=== PATIENT | female | born 1980 | race Asian ===

== ENCOUNTER 2016-10-28 09:58 | Inpatient (IN) | payer OTHER ==
--- NOTE | 2016-10-21 15:02 | HISTORY & PHYSICAL EXAMINATION ---
DATE: 10/28/2016 CHIEF COMPLAINT: Previous . HISTORY OF PRESENT ILLNESS: The patient is a 36-year-old 2, para 1, general health is good. No known drug allergies. Had her first visit during her course at over 20 weeks. Her first delivery was 2006, boy, 8 pounds, after spontaneous labor at 40 weeks for cephalopelvic disproportion. She has had her first ultrasound done during this on 07/01/2016 at which time she was 21 weeks 6 days, presently being scheduled for repeat low segment section. PAST MEDICAL HISTORY: She has 1 boy age 10 in good health. ALLERGIES: No known drug allergies. PAST SURGICAL HISTORY: . MEDICAL HISTORY: No history of rheumatic fever, heart disease, heart murmur, diabetes, tuberculosis. SOCIAL HISTORY: No smoking. 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 FAMILY HISTORY: Mother is 65 in good health. Father 74, in good health. Two brothers and 3 sisters, all in good health. REVIEW OF SYSTEMS: HEAD: No symptoms of frequent or severe headaches. EYES: No symptoms of blurred vision, double vision. EARS: No symptoms of frequent ear infections, difficulty hearing. NOSE: No symptoms of frequent nosebleeds, difficulty breathing through her nose. THROAT: No symptoms of frequent or severe sore throat, difficulty swallowing. RESPIRATORY SYSTEM: No history of asthma, chest pain, shortness of breath. PHYSICAL EXAMINATION: GENERAL: Well-developed, well-nourished 36-year-old [place] female, alert, oriented x3 and cooperative in no acute distress, appears stated age. EYES: Conjunctivae are pink, sclerae white, no evidence of jaundice. EARS: Had normal light reflex bilaterally. NOSE: Had normal mucosa. Septum is midline. There were no polyps. THROAT: No erythema or evidence of infection. Teeth are in good state of repair. HEAD: Was normocephalic. Normal distribution of hair. NECK: Supple. Trachea midline. Thyroid is not enlarged. There is no adenopathy appreciated. Both carotids are of good intensity. CHEST: Clear to auscultation and percussion. No wheezes, rales or rhonchi appreciated. HEART: Had regular rhythm. S1 and S2 are normal. BREAST EXAMINATION: Normal. ABDOMEN: Nontender. movement was palpable. Fundal height was 38 cm. There is a well-healed Pfannenstiel scar. PELVIC EXAMINATION: Vertex presentation. Cervix posterior and closed. MUSCULOSKELETAL EXAMINATION: Revealed no calf tenderness. IMPRESSIONS OF THIS CASE: Previous for cephalopelvic disproportion and repeat the at 39+ weeks gestation.
[~2016-10-28] VITALS: Ht 154.9 cm; Wt 67.7 kg
[2016-10-28] VITALS (13 sets, daily range): BP systolic 103–104; BP diastolic 63–107; PULSE 80–97; TEMP 36.7–37.7; O2SAT 95–99; Ht 154.9 cm; Wt 67.7 kg
[~2016-10-28 09:58] MED LIST: CEFOXITIN IV 2,000 MG in DEXTROSE 5% 50ML 50 ML IV SCH
[2016-10-28] MEDS ORDERED: LACTATED RINGER'S 1000ML 1,000 ML IV ONE (10:25)
[2016-10-28] MEDS ORDERED: CITRIC ACID/SODIUM CITRATE 15 ML UDC PO SCH (11:00)
[2016-10-28 11:03] LABS: BASO % 0.1 %; BASO ABS # 0.01 K/uL (0-0.2); COMPLETE YES; EOS % 0.1 %; HEMATOCRIT 29.5 % (37-47); IG% 0.1 %; LYMPH % 19.3 %; LYMPH ABS # 1.34 K/uL (1.2-3.4); MEAN CELL VOLUME 86.5 fL (80-100); MEAN CORPUSCULAR HGB CONC 33.6 g/dl (32-36); MEAN PLATELET VOLUME 9.8 fL (7.4-10.4); MONO % 5.2 %; NEUT % 75.2 %; PLATELET COUNT 228 K/uL (130-400); RED BLOOD COUNT 3.41 M/uL (4.2-5.4); WHITE BLOOD COUNT 6.94 K/uL (4.8-10.8)
[2016-10-28] MEDS ORDERED: MoRPHine SULFATE PF 1 MG/ML 10 ML AMP/VIAL ONE (11:06)
[2016-10-28] MEDS ORDERED: FENTANYL CITRATE INJ 50 MCG/1 ML 2 ML VIAL ONE (11:06)
[2016-10-28] MEDS ORDERED: OXYTOCIN INJ 10 UNITS/ML VIAL ONE (11:06)
[2016-10-28] MEDS ORDERED: EpHEDrine SULFATE INJ 50 MG/ML AMP IV PRN ×2 (11:15→13:00)
[2016-10-28] MEDS ORDERED: FENTANYL CITRATE INJ 50 MCG/1 ML 2 ML VIAL IV PRN (11:15)
[2016-10-28] MEDS ORDERED: ONDANSETRON INJ 2 MG/ML 2 ML VIAL IV PRN ×2 (11:15→13:00)
[2016-10-28] MEDS ORDERED: ATROPINE SULFATE 0.1 MG/ML 5ML SYR IV PRN (11:15)
[2016-10-28] MEDS ORDERED: OXYTOCIN INJ 10 UNITS/ML VIAL INJ ONE (12:15)
[2016-10-28] MEDS ORDERED: HYDROCORTISONE ACETATE 25 MG SUPP PR PRN (12:30)
[2016-10-28] MEDS ORDERED: LANOLIN OINT EXT PRN ×2 (12:30)
[2016-10-28] MEDS ORDERED: BENZOCAINE 20% AER SPR 82.5 GM CAN EXT PRN (12:30)
[2016-10-28] MEDS ORDERED: SUPERCREAM 0.870 % 15GM JAR EXT PRN (12:30)
[2016-10-28] MEDS ORDERED: SENNA 8.6 MG TAB PO PRN (12:30)
[2016-10-28] MEDS ORDERED: MAGNESIUM HYDROXIDE SUSP 30 ML UDC PO PRN (12:30)
[2016-10-28] MEDS ORDERED: DIPHTHERIA/TETANUS/PERTUSSIS 0.5 ML SYR/VIAL IM. ONE (12:30)
[2016-10-28] MEDS ORDERED: LACTATED RINGER'S 1000ML 500 ML IV PRN (12:51)
[2016-10-28] MEDS ORDERED: NALOXONE HCL INJ 0.08 MG in SYRINGE 1.8 ML IV PRN (12:51)
[2016-10-28] MEDS ORDERED: SODIUM CHLORIDE 0.9% 1000ML 1,000 ML IV PRN (12:51)
[2016-10-28] MEDS ORDERED: NALOXONE HCL INJ 1 MG in SODIUM CHLORIDE 0.9% 1000ML 1,000 ML IV PRN (12:51)
--- NOTE | 2016-10-28 12:58 | OPERATIVE REPORT ---
DATE OF OPERATION: 10/28/2016 PREOPERATIVE DIAGNOSES: Intrauterine 38 weeks 4 days, active labor. PROCEDURE: Repeat low segment section. POSTOPERATIVE DIAGNOSES: Same; delivered live female . SURGEON: See Dominguez MD CAMOUFLAGE SPECIALIST: Dr. Quigley. ESTIMATED BLOOD LOSS: 600 mL. ANESTHESIA: Spinal. OPERATIVE FINDINGS AND PROCEDURE: The patient was brought to the OR table, correctly identified by armband and conversation. Spinal anesthesia was administered. A catheter was placed in the vagina aseptically connected to gravity drainage. Compression stockings were applied. A lap pad was applied to the upper thigh. Lower abdomen up to the umbilical area was painted with an alcohol based sterilizing solution. We waited 3 minutes for the solution to dry and then draped in usual sterile fashion, checked the level of anesthesia, and made a Pfannenstiel incision through her previous scar. Incision was carried down to the anterior fascia by electrocautery and sharp dissection. Hemostasis was secured with electrocautery. Fascia was incised in the midline and then cut laterally on the patient's right and left side. The fascial edges were then grasped with straight Jean Pierre's and the fascia was from the rectus muscle up towards the umbilicus and down to the pelvic brim. Recti muscles were then in the midline. Peritoneum was raised and carefully entered. The bladder reflection was quite high, was over fpc the distance between the pelvic brim and the umbilicus. We then cut and undermined the fascia and exposed the lower uterine segment. Head was relatively high in the pelvis. We made an incision on the uterus mid portion on the palpated head and carried it down to the anterior fascia by sharp and then blunt dissection. We entered the uterine cavity. Clear amniotic fluid was seen at this time. The incision was then extended laterally with 2 fingers. Molder Apprentice's hand was inserted in uterine cavity. A vectis retractor was applied and with fundal pressure, we delivered the head. There was a loose nuchal cord around the neck. Suctioned the baby through the mouth and the nose. The streetsweeper operator was scrubbed and present at the time of delivery. We then delivered the body without difficulty. Cord was then clamped and cut and the infant was handed off to the streetsweeper operator. Following this, the placenta was removed manually. Uterus, tubes, and ovaries were brought out through the incision. There was lot of scarring to the lower uterine segment with a real high peritoneal reflection. We had to take down several of these peritoneal scars to expose the lower uterine segment. We then closed in 2 layers. We used a layer of chromic to approximate the myometrium and the fascial layer was approximated over this with a continuous interlocking suture of heavy Vicryl and we used 3 interrupted [id number] sutures of Vicryl to approximate the edges where they were oozing. Following this, hemostasis was excellent. We could not reapproximate the peritoneal edges, so we used Seprafilm and covered the bladder reflection with Seprafilm and then approximated the anterior peritoneum with a mattress suture of chromic catgut. Recti muscles with interrupted [id number] suture of chromic catgut. Fascia was closed with a continuous interlocking suture of Vicryl on each side, tied in the midline. The fascial edges were then approximated with a heavy Vicryl, which was sutured at the lateral angles of the fascial defect and run from the right to the middle and from the left to the middle. We then washed out the incision, approximated the subQ tissue with continuous plain, and then the skin edges with staple clips. I attest to the content of the Intraoperative Record and any orders documented therein. Any exceptio ns are noted below.
[2016-10-28] MEDS ORDERED: KETOROLAC TROMETHAMINE 30 MG/ML VIAL IV. PRN (13:00)
[2016-10-28] MEDS ORDERED: NALBUPHINE HCL INJ 10 MG/ML AMP IV PRN (13:00)
[2016-10-28] MEDS ORDERED: MoRPHine SULFATE PF 1 MG/ML 10 ML AMP/VIAL EPI PRN (13:00)
[2016-10-28] MEDS ORDERED: MEPERIDINE HCL 25 MG/ML CARP IV PRN (13:00)
[2016-10-28] MEDS ORDERED: NO NARCOTICS OR SEDATIVES SCH (13:00)
[2016-10-28] MEDS ORDERED: NALOXONE HCL 0.4 MG/1 ML VIAL/CARP IV PRN (13:00)
[2016-10-28] MEDS: SIMETHICONE 80 MG CHEW PO SCH ×3 (13:00→20:00)
[2016-10-28] MEDS ORDERED: DiphenhydrAMINE HCL 50 MG/ML VIAL IV PRN (13:00)
[2016-10-28] MEDS: OXYTOCIN INJ 20 UNITS in LACTATED RINGER'S 1000ML 1,000 ML IV SCH ×2 (13:33→21:29)
--- NOTE | 2016-10-28 13:42 | Anesthesiology Progress Note ---
Anesthesia Post Op Note Date & Time Oct 28, 2016 at 13:41 Notes Mental Status: alert / awake / arousable, participated in evaluation Pt Amnestic to Procedure: Yes Nausea / Vomiting: adequately controlled Pain: adequately controlled Airway Patency, RR, SpO2: stable & adequate BP & HR: stable & adequate Hydration State: stable & adequate Neuraxial Anesthesia: was administered, sensory block is resolving Anesthetic Complications: no major complications apparent
[2016-10-28] MEDS ORDERED: PRENTAB26 PO (14:49)
[2016-10-28] MEDS ORDERED: INFLUENZA ADMINISTRATION CHARGE ONE (15:15)
[2016-10-28] MEDS ORDERED: INFLUENZA VIRUS QUAD VACCINE 0.5 ML SYR IM. ONE (15:15)
[2016-10-28] MEDS: DOCUSATE SODIUM 100 MG CAP PO SCH (19:38)
[2016-10-29] VITALS (9 sets, daily range): BP systolic 102–107; BP diastolic 66–71; PULSE 78–99; TEMP 36.6–37; O2SAT 93–98
[2016-10-29] MEDS ORDERED: MEPERIDINE HCL 50 MG/ML CARP IV PRN (05:30)
[2016-10-29] MEDS ORDERED: OXYCODONE/ACETAMINOPHEN 5-325 TAB PO PRN (05:30)
[2016-10-29] MEDS ORDERED: MEPERIDINE HCL 75 MG/ML CARP IV PRN (05:30)
[2016-10-29] MEDS ORDERED: DC INTRASPINAL MORPHINE SCH (05:30)
[2016-10-29] MEDS ORDERED: DiphenhydrAMINE HCL 50 MG/ML VIAL IV PRN (05:30)
[2016-10-29] MEDS ORDERED: KETOROLAC TROMETHAMINE 30 MG/ML VIAL IV. PRN (05:30)
[2016-10-29] MEDS ORDERED: ONDANSETRON INJ 2 MG/ML 2 ML VIAL IV PRN (05:30)
[2016-10-29] MEDS ORDERED: ZOLPIDEM TARTRATE 5 MG TAB PO PRN (05:30)
[2016-10-29 07:00] LABS: BASO % 0.1 %; HEMATOCRIT 29.3 % (37-47); IG% 0.2 %; LYMPH % 10.1 %; LYMPH ABS # 1.07 K/uL (1.2-3.4); MEAN CELL VOLUME 85.9 fL (80-100); MEAN CORPUSCULAR HEMOGLOBIN 28.7 pg (25-34); MEAN CORPUSCULAR HGB CONC 33.4 g/dl (32-36); MEAN PLATELET VOLUME 9.4 fL (7.4-10.4); MONO % 6.9 %; NEUT % 82.7 %; PLATELET COUNT 200 K/uL (130-400); RED BLOOD COUNT 3.41 M/uL (4.2-5.4); WHITE BLOOD COUNT 10.56 K/uL (4.8-10.8)
[2016-10-29 07:01] LABS: BASO ABS # 0.01 K/uL (0-0.2); COMPLETE YES
[2016-10-29] MEDS: IBUPROFEN 600 MG TAB PO PRN ×2 (08:24→16:14)
[2016-10-29] MEDS: SIMETHICONE 80 MG CHEW PO SCH ×4 (08:25→20:16)
[2016-10-29] MEDS: DOCUSATE SODIUM 100 MG CAP PO SCH ×2 (08:25→20:16)
[2016-10-29] MEDS: FERROUS SULFATE 325 MG TAB PO SCH (08:26)
[2016-10-29] MEDS: PRENATAL VITAMIN TAB PO SCH (08:26)
--- NOTE | 2016-10-29 09:32 | Progress Note ---
Subjective Oct 29, 2016. Subjective conversation w/ patient Ambulation: limited ambulation Voiding: jamison catheter in place Diet Tolerance: Clear Liquids Lochia: Small Feeding Type: Breast Feeding Review of Systems Constitutional: + fever Objective Vital Signs Date Time Temp Pulse Resp B/P Pulse Ox O2 Delivery O2 Flow Rate FiO2 10/29/16 04:40 18 98 10/29/16 03:40 16 95 10/29/16 03:40 36.6 99 16 102/66 Room Air 10/29/16 03:00 18 98 10/29/16 02:00 18 95 10/29/16 01:00 16 95 10/29/16 00:00 16 95 10/28/16 23:55 16 95 10/28/16 23:46 99 Room Air 10/28/16 23:43 36.7 97 16 /107 99 Room Air 10/28/16 23:00 16 95 10/28/16 22:04 16 96 10/28/16 21:00 16 98 10/28/16 20:15 36.7 80 16 103/67 99 Room Air 10/28/16 20:00 16 99 10/28/16 19:00 18 98 10/28/16 18:30 18 99 10/28/16 17:30 18 95 10/28/16 17:00 37.7 89 18 104/63 95 Room Air 10/28/16 16:35 95 Room Air 10/28/16 16:35 95 Room Air 10/28/16 16:35 18 95 Physical Exam General Appearance: WELL-APPEARING Respiratory/Chest: lungs clear Abdomen: + abnormal bowel sounds Fundus: Firm, Non-Tender Incision Description: Clean, Dry & Intact Extremities: no pedal edema, no calf tenderness Laboratory Results Last 24 Hours Test 10/28/16 10:51 10/29/16 06:35 White Blood Count 6.94 K/uL 10.56 K/uL Red Blood Count 3.41 M/uL 3.41 M/uL Hemoglobin 9.9 g/dL 9.8 g/dL Hematocrit 29.5 % 29.3 % Mean Corpuscular Volume 86.5 fL 85.9 fL Mean Corpuscular Hemoglobin 29.0 pg 28.7 pg Mean Corpuscular Hemoglobin Concent 33.6 g/dl 33.4 g/dl Platelet Count 228 K/uL 200 K/uL Mean Platelet Volume 9.8 fL 9.4 fL Neutrophils (%) (Auto) 75.2 % 82.7 % Lymphocytes (%) (Auto) 19.3 % 10.1 % Monocytes (%) (Auto) 5.2 % 6.9 % Eosinophils (%) (Auto) 0.1 % 0.0 % Basophils (%) (Auto) 0.1 % 0.1 % Neutrophils # (Auto) 5.21 K/uL 8.73 K/uL Lymphocytes # (Auto) 1.34 K/uL 1.07 K/uL Monocytes # (Auto) 0.36 K/uL 0.73 K/uL Eosinophils # (Auto) 0.01 K/uL 0.00 K/uL Basophils # (Auto) 0.01 K/uL 0.01 K/uL RDW Standard Deviation 43.0 fL 43.0 fL RDW Coefficient of Variation 13.6 % 13.7 % Immature Granulocyte % (Auto) 0.1 % 0.2 % Immature Granulocyte # (Auto) 0.01 K/uL 0.02 K/uL Assessment and Plan Post-Op Day#: 1 Continue Routine Care: high pitched bowel sounds
[2016-10-29] MEDS: OXYCODONE/ACETAMINOPHEN 5-325 TAB PO PRN ×2 (10:42→17:39)
[2016-10-29] MEDS ORDERED: BISACODYL 5 MG TABEC PO ONE (22:00)
[2016-10-30 08:00] VITALS: O2SAT 96
[2016-10-30] MEDS: SIMETHICONE 80 MG CHEW PO SCH ×4 (08:02→20:25)
[2016-10-30] MEDS: DOCUSATE SODIUM 100 MG CAP PO SCH ×2 (08:02→20:25)
[2016-10-30] MEDS: PRENATAL VITAMIN TAB PO SCH (08:02)
[2016-10-30] MEDS: FERROUS SULFATE 325 MG TAB PO SCH (08:02)
[2016-10-30] MEDS: IBUPROFEN 600 MG TAB PO PRN ×2 (08:23→17:51)
[2016-10-30] MEDS: OXYCODONE/ACETAMINOPHEN 5-325 TAB PO PRN ×2 (08:24→17:51)
--- NOTE | 2016-10-30 12:23 | Progress Note ---
Subjective Oct 30, 2016. Subjective conversation w/ patient Ambulation: ambulating normally Voiding: no voiding problems, jamison catheter in place Passing Gas: Yes Diet Tolerance: Regular Diet Lochia: Small Feeding Type: Breast Feeding Review of Systems Constitutional: + fever Objective Vital Signs Date Time Temp Pulse Resp B/P Pulse Ox O2 Delivery O2 Flow Rate FiO2 10/30/16 08:00 96 Room Air 10/29/16 23:05 Room Air 10/29/16 23:05 36.6 99 18 106/70 Room Air Physical Exam General Appearance: WELL-APPEARING Respiratory/Chest: lungs clear Abdomen: normal bowel sounds, non tender Fundus: Firm, Non-Tender Incision Description: Clean, Dry & Intact Extremities: no pedal edema, no calf tenderness Assessment and Plan Post-Op Day#: 2
[2016-10-30] MEDS ORDERED: BISACODYL 10 MG SUPP PR PRN (12:30)
[2016-10-30 16:15] VITALS: O2SAT 96
[2016-10-31 00:35] VITALS: BP 96/64; PULSE 81; TEMP 36.7; O2SAT 97
[2016-10-31] MEDS: OXYCODONE/ACETAMINOPHEN 5-325 TAB PO PRN ×3 (00:52→09:48)
[2016-10-31] MEDS: IBUPROFEN 600 MG TAB PO PRN ×3 (00:52→09:48)
[2016-10-31 08:30] VITALS: BP 103/70; PULSE 89; TEMP 36.3
--- NOTE | 2016-10-31 08:45 | Progress Note ---
Subjective Oct 31, 2016. Subjective conversation w/ patient Ambulation: ambulating normally Voiding: no voiding problems, jamison catheter in place Passing Gas: Yes Diet Tolerance: Regular Diet Lochia: Small Feeding Type: Breast Feeding Review of Systems Constitutional: + fever Objective Vital Signs Date Time Temp Pulse Resp B/P Pulse Ox O2 Delivery O2 Flow Rate FiO2 10/31/16 00:35 36.7 81 12 96/64 97 Room Air 10/31/16 00:35 97 Room Air 10/30/16 16:15 96 Room Air Physical Exam General Appearance: WELL-APPEARING Respiratory/Chest: lungs clear Abdomen: normal bowel sounds, non tender Fundus: Firm, Non-Tender Incision Description: Clean, Dry & Intact Extremities: no pedal edema, no calf tenderness Assessment and Plan Post-Op Day#: 3
--- NOTE | 2016-10-31 08:47 | Discharge Instructions ---
Discharge Instructions Admission Reason for Admission: R/O Labor Discharge Discharge Diagnosis / Problem: repeat section Discharge Goals Goal(s): Routine recovery after Activity Recommendations Activity Limitations: as noted below ACTIVITY RECOMMENDATIONS: * Gradual return to full activity over the next 2-3 weeks. * No lifting - nothing heavier than baby over the next 2-3 weeks. * Do not engage in vigorous exercise, sexual activity or sports for 6 weeks. * Do not drive or operate any motorized equipment for 14 days. * You may shower/bathe daily. DIET: Resume Previous Diet If Breast-feeding: * Increase caloric intake by 500 calories, eat 3 well balanced meals, 2 high protein snacks a day and drink 6-8 8oz. glasses of fluid per day. BREAST CARE: If you are not breast feeding: * Wear a supportive bra 24 hours a day for one to two weeks. * Avoid stimulating your breasts and nipples as much as possible during the first few weeks after delivery. * When taking a shower, have the warm water hit your back, not breasts. * When your breasts feel full, apply ice packs. Usually three to four times a day helps ease the discomfort. * Take a mild pain medication (Tylenol / Motrin) when you are uncomfortable. If breast feeding: * Use breast milk to lubricate nipples. Lansinoh cream may be used for sore nipples. You do not need to remove cream prior to breast feeding. If using a different brand of cream, check the label for directions regarding removal of cream prior to nursing. * Wear a supportive bra. * If having problems with breasts or breast feeding, call a networks software consultant or your health care provider. VITAMINS: * One tablet daily. Continue taking while or until you have your check up in 6 weeks. SPECIAL CARE INSTRUCTIONS: * Vaginal rest (no tampons, douching, intercourse) until after doctor's visit. * control as discussed with doctor. * Verbalizes understanding of car seat law as reviewed with patient by nursing. * Car Seat hand-out given and reviewed with patient by nursing. * Shaken baby information reviewed with patient by nursing. Call you doctor if: * Heavy bleeding (saturating a pad an hour) or passing clots the size of your fist. Bleeding has a foul smelling odor. * A fever greater than 100.4 degrees F (38 degrees C) on two occasions four hours apart and/or chills. * Unusual pain in the pelvic or vaginal areas. Pain should improve each day . * Call the doctor for any increased redness, drainage or swelling around the incision and any pain unrelieved by prescribed pain medication. * Signs and symptoms of phlebitis(possible blood clots forming in the veins): leg pain, warm, red or swollen area on leg. * "Baby Blues" lasting longer than two weeks. If you have any questions or concerns, call your health care practitioner at [phone]. FOLLOW-UP VISIT: Follow-up visit for examination in 6 weeks. Incision check (staple removal) in 1 week. Please call office at [phone] if not already scheduled. . Current Hospital Diet Patient's current hospital diet: Regular Diet Discharge Diet Recommended Diet: Regular Diet Procedures Procedures Performed: Repeat Caesarean Section in Labor for Living Female child at 1145 Pending Studies Studies pending at discharge: no Medical Emergencies . Who to Call and When: Medical Emergencies: If at any time you feel your situation is an emergency, please call 911 immediately. . Non-Emergent Contact Non-Emergency issues call your: Technology Training Associate Call Non-Emergent contact if: temperature is above 100.5 . . "Provider Documentation" section prepared by Khris Dominguez. VTE Core Measure Inpt VTE Proph given/why not?: Treatment not indicated
--- NOTE | 2016-10-31 08:58 | DISCHARGE SUMMARY ---
DATE OF DISCHARGE: 10/31/2016. Mrs. Allen was followed in our office for care and delivery. She had been a previous for distress meconium. She had been scheduled for routine repeat at 39 weeks; however, she called early in the morning said she was in labor. She came to the hospital where she was checked, she had a bloody show, her cervix was 2-3 cm. She was having regular contractions. We then performed an emergency section. This went without difficulty. Vaginal blood loss was minimal. Her preoperative hemoglobin was 9.9, hematocrit 29.5. Postoperatively hemoglobin was 9.8, hematocrit 29.3. Postoperatively she did well. Bowel sounds returned within 24 hours. She never had a temperature. At the time of discharge, she was ambulating well, eating well. Pain was well controlled with a combination of Percocet and Motrin and she was given prescriptions for the medications. She was also told to call the office if she had a temperature over 100 or any heavy bleeding and to return the following week for removal of sunil.
[2016-10-31] MEDS: SIMETHICONE 80 MG CHEW PO SCH (09:43)
[2016-10-31] MEDS: PRENATAL VITAMIN TAB PO SCH (09:43)
[2016-10-31] MEDS: FERROUS SULFATE 325 MG TAB PO SCH (09:43)
[2016-10-31] MEDS: DOCUSATE SODIUM 100 MG CAP PO SCH (09:43)
[2016-10-31 10:30] VITALS: BP_DIAS 70; PULSE 89; TEMP 36.3
== END 2016-10-31 10:45 | disposition home or self-care (01) | DRG 766 ==
LOC: C.LD 09:58 → C.OPB 09:58 → C.LD 10:30 → C.OBG 17:20
PROVIDERS: ADMIT Obstetrics & Gynecology; ATTEND Obstetrics & Gynecology
PROC: 10D00Z1 Extraction of Products of Conception, Low, Open Approach (ICD-10-PCS; principal; 2016-10-28 11:35)
DX: O34.211 Maternal care for low transverse scar from previous cesarean delivery (principal); Z3A.38 38 weeks gestation of pregnancy; Z37.0 Single live birth

== ENCOUNTER → 2016-12-11 | Outpatient (CLI) | payer OTHER ==
[~2016-12-11] MED LIST changes: -CEFOXITIN IV 2,000 MG in DEXTROSE 5% 50ML 50 ML IV SCH; +PRENTAB26 PO
== END | disposition home or self-care (01) ==
LOC: C.PAPS 16:27
PROVIDERS: ATTEND Obstetrics & Gynecology
DX: Z39.2 Encounter for routine postpartum follow-up (principal)